=== PATIENT | female | born 1945 | race Caucasian/White ===

== ENCOUNTER 2018-02-22 12:30 | Outpatient (RCR) | payer MEDICARE, SELFPAY ==
--- NOTE | 2017-12-13 14:06 | HP.PTEVAL_ITS ---
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 Date of Evaluation: 12/13/17 Physical Therapist: Lilia Steward - Visit Plan Frequency: 2x /Week Duration: 3 Months Plan: Per script: Phase I ONLY (Prom flex to 130 degrees and ER to 30 degrees and may begin AAROM within tolerance). Pt will see for Recheck on December 25. (Copy of protocol is in Red folder). 2X/ week for 10 weeks for R shoulder PROM and progressing to AAROM AND AROM, strengthening per PROTOCOL with HEP and ice PRN - Subjective Subjective: 2014 pt had L TSR and NOW R TSA on 11-12-2017. Pt fell and she twisted and landed on the R shoulder and she tore all the ligamnets and muscles. MRI said she needed a total replacement. Dr Sharma did the surgery and he said it went ok. Return back to on December 25. Pt was over at [place] for rehab for awhile and sent me home. Pt reports that she has been taking her arm out of the sling and she gets bicep grabbing. She is R handed. - Pain R shoulder pain Pain Intensity (Out of 10): 5 - Objective R shoulder PROM: flex to 130 degrees, ER to 30 degrees with no pain. Pt demonstrates ease with pendulums and good knowledge of exercise. - Goals Goal 1:: I HEP Goal Time Frame: 4-6 Weeks Goal 2:: Decrease pain to 0/10 with all ADL's. Goal Time Frame: 4-6 Weeks Goal 3:: Increase R shoulder strength to 4/5 once released to Phase III at D/C Goal Time Frame: 8-12 Weeks Goal 4:: Increase R shoulder AROM 10 160 degrees elevation without pain Goal Time Frame: 6-8 Weeks - Rehabilitation Potential Rehabilitation Potential: Good - Anticipated Interventions Patient/Client Instruction: Educate patient on: Condition, Plan of Care For the Purpose of:: To decrease pain, To increase ROM, To improve nutrient delivery to tissue, To improve muscle performance and motor function, To improve ability to perform ADL's, To increase tolerance to activity/condition/ position, To improve performance and independence with ADL's, To improve ability of physical actions for home/community/work/leisure, To improve health of tissue, To decrease soft tissue restriction, To increase flexibility/ROM Therapeutic Exercise to Include: Strength training, Flexibilty training, Passive ROM, Active ROM, Scapular Strength/Stabilization For the Purpose of:: To decrease pain, To decrease swelling/inflammation, To increase ROM, To increase oxygenation perfusion, To improve muscle performance and motor function, To increase tolerance to activity/condition/position, To improve performance and independence with ADL's, To improve health of tissue, To decrease soft tissue restriction, To increase flexibility/ROM Manual Therapy Techniques to Include: Passive ROM For the Purpose of:: To decrease soft tissue restriction, To increase flexibility/ROM Cryotherapy (ice pack, ice massage): Yes For the Purpose of:: To decrease pain, To decrease swelling/inflammation Thank you for the opportunity to evaluate your patient. For Medicare and Medicare HMO plans, please review the plan of care and approve it. It will need to be FAXED BACK to us at [phone] for Medicare purposes. Please let me know if there are questions or concerns regarding this plan of care. Physician Signature: Date:
--- NOTE | 2018-01-09 15:23 | HP.PTREVAL_ITS ---
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 Please see the progress note below for an update on the physical therapy plan of care! Subjective: Pt reports no pain with the increase in exercises from last visit. Objective/Function: Pt very weak into ER 2-/5. Pt stuggles with AA wand exercises...difficult for pt. Pt had some increase pain in back with stepping R shooulder flex. AROM R shld flex 70 degrees, R shld abd 74 degrees, and IR to L4 Plan Plan: Continue with AROM, AAROM, strengthening. cont per protocol. Goals Goal 1:: I HEP Goal Time Frame: 4-6 Weeks Goal 2:: Decrease pain to 0/10 with all ADL's. Goal Time Frame: 4-6 Weeks Goal 3:: Increase R shoulder strength to 4/5 once released to Phase III at D/C Goal Time Frame: 8-12 Weeks Goal 4:: Increase R shoulder AROM 10 160 degrees elevation without pain Goal Time Frame: 6-8 Weeks Anticipated Interventions Patient/Client Instruction: Educate patient on: Condition, Plan of Care For the Purpose of:: To decrease pain, To increase ROM, To improve nutrient delivery to tissue, To improve muscle performance and motor function, To improve ability to perform ADL's, To increase tolerance to activity/condition/ position, To improve performance and independence with ADL's, To improve ability of physical actions for home/community/work/leisure, To improve health of tissue, To decrease soft tissue restriction, To increase flexibility/ROM Therapeutic Exercise to Include: Strength training, Flexibilty training, Passive ROM, Active ROM, Scapular Strength/Stabilization For the Purpose of:: To decrease pain, To decrease swelling/inflammation, To increase ROM, To increase oxygenation perfusion, To improve muscle performance and motor function, To increase tolerance to activity/condition/position, To improve performance and independence with ADL's, To improve health of tissue, To decrease soft tissue restriction, To increase flexibility/ROM Manual Therapy Techniques to Include: Passive ROM For the Purpose of:: To decrease soft tissue restriction, To increase flexibility/ROM Cryotherapy (ice pack, ice massage): Yes For the Purpose of:: To decrease pain, To decrease swelling/inflammation Please do not hesitate to contact me at [phone] by phone or Fax: if you have questions or concerns regarding this new plan of care! Sincerely, Lilia Steward
--- NOTE | 2018-02-01 14:14 | HP.PTREVAL_ITS ---
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 Please see the progress note below for an update on the physical therapy plan of care! Subjective: Pt 5 min late for appt. Pt reports that she is getting better. Still not great ROM. Pt sees the Dr next Sunday. Pt feels that she is getting stronger but it is slow. She has bands at home to do her HEP. Objective/Function: flexion 73. abd 81. ER 14 degrees. IT T12. Still extremely weak with elevation and ER motions. Improved resistance with isometic ER but full ROM into ER is still difficult. Plan Plan: 3X/ week for 3 weeks for RC and scapular strengthening to enable pt to be more independent with her R UE in ADL's/ home life. Goals Goal 1:: I HEP Goal Time Frame: 4-6 Weeks Goal Progress: Goal Met Goal 2:: Decrease pain to 0/10 with all ADL's. Goal Time Frame: 4-6 Weeks Goal Progress: Progressing Goal 3:: Increase R shoulder strength to 4/5 once released to Phase III at D/C Goal Time Frame: 8-12 Weeks Goal Progress: Progressing Goal 4:: Increase R shoulder AROM 10 160 degrees elevation without pain Goal Time Frame: 6-8 Weeks Goal Progress: Progressing Anticipated Interventions Patient/Client Instruction: Educate patient on: Condition, Plan of Care For the Purpose of:: To decrease pain, To increase ROM, To improve nutrient delivery to tissue, To improve muscle performance and motor function, To improve ability to perform ADL's, To increase tolerance to activity/condition/ position, To improve performance and independence with ADL's, To improve ability of physical actions for home/community/work/leisure, To improve health of tissue, To decrease soft tissue restriction, To increase flexibility/ROM Therapeutic Exercise to Include: Strength training, Flexibilty training, Passive ROM, Active ROM, Scapular Strength/Stabilization For the Purpose of:: To decrease pain, To decrease swelling/inflammation, To increase ROM, To increase oxygenation perfusion, To improve muscle performance and motor function, To increase tolerance to activity/condition/position, To improve performance and independence with ADL's, To improve health of tissue, To decrease soft tissue restriction, To increase flexibility/ROM Manual Therapy Techniques to Include: Passive ROM For the Purpose of:: To decrease soft tissue restriction, To increase flexibility/ROM Cryotherapy (ice pack, ice massage): Yes For the Purpose of:: To decrease pain, To decrease swelling/inflammation Please do not hesitate to contact me at [phone] by phone or Fax: if you have questions or concerns regarding this new plan of care! Sincerely, Lilia Steward
--- NOTE | 2018-02-22 13:06 | HP.PTDCSUM_ITS ---
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 Discharge Date: Please see the following information for a summary of their discharge status. - Subjective Subjective: Pt reports she feels ready for DC. Pt has no pain this date - Pain R shoulder pain Pain Intensity (Out of 10): 0 LB Pain Intensity (Out of 10): Unrated - Overall Improvement % Improvement: 90 - Objective Objective/Function: R shoulder ROM: flex= 92, abd= 82, ER= 15, IR Mod limited. MMT: R shoulder 4-/5 throughout available ROM except IR= 4+/5. Pain= 0/10. I with HEP. Rx goals achieved - Goals Goal 1:: I HEP Goal Progress: Goal Met Goal 2:: Decrease pain to 0/10 with all ADL's. Goal Progress: Progressing Goal 3:: Increase R shoulder strength to 4/5 once released to Phase III at D/C Goal Progress: Progressing Goal 4:: Increase R shoulder AROM 10 160 degrees elevation without pain Goal Progress: Progressing - Plan Plan: Discharge - D/C Information If there are questions or concerns regarding this patient's physical therapy, please feel free to call me at [phone]. Thank you for the referral of this patient. Sincerely, Khoi Payan, PT,
== END 2018-02-22 14:37 | disposition home or self-care (01) ==
LOC: PT 12:30
PROVIDERS: Family Provider Family Medicine; PCP Family Medicine
DX: M12.811 Other specific arthropathies, not elsewhere classified, right shoulder (principal)
CPT/HCPCS: 97110; 97140; 97161; 97530